=== PATIENT | male | born 1985 | race Caucasian/White ===

== ENCOUNTER 2021-04-25 14:25 | Emergency (ER) | payer MEDICAID, SELFPAY ==
[2021-04-25 14:43] VITALS: BP 112/76; PULSE 75; RESP 14; TEMP 36.8; O2SAT 99; BMI 27.2
--- NOTE | 2021-04-25 15:12 | HMH.EDUTC ---
[facility] [place] Clinical Impression: Vasculitis Disposition: Home, Self-Care Condition on Discharge: Good Instructions: DI for Vasculitis Additional Instructions: Go home and rest. It would be best if you rested tomorrow too. Take the oral medications as directed. Follow up with your regular doctor. GO TO THE ER FOR ANY WORSENING SYMPTOMS OR CONCERN, ESPECIALLY BOWEL OR BLADDER ISSUES, SADDLE AREA NUMBNESS, FEVER, ETC Prescriptions: methylPREDNISolone [Medrol] 4 mg PO DIRECTED 6 Days #21 [email or web address] Transmission Status: Received by [facility] Referrals: Provider,Referral, [Primary Care Provider] - Forms: Work/School Release Time of Disposition: 15:32 Medical Decision Making - Medical Records Medical records reviewed: No: I reviewed the patient's medical records. - Christian Inquiry Pt receiving controlled substance: No Vital Signs: 04/25/21 14:43 04/25/21 15:33 Temperature 98.2 F 98 F Temperature Source Oral Pulse Rate 75 Pulse Rate [Left] 75 Respiratory Rate 14 14 Blood Pressure 112/76 Blood Pressure [Right Arm] 112/76 Blood Pressure Mean [Right Arm] 88 02 Sat by Pulse Oximetry 99 [facility] [place] - General Stated complaint: rash on both legs Time Seen by Provider: 04/25/21 15:12 Mode of Arrival: Ambulatory Source of Information: Patient Limitations: No Limitations HEENT Symptoms (Recalled from RN notes): No Resp Symptoms (Recalled from RN notes): No Skin Symptoms (Recalled from RN notes): Yes (rash bilaterally on lower legs) MS Symptoms (Recalled from RN notes): No Functional Status (Recalled from RN notes): na - History of Present Illness Provider Complaint: pt c/o a rash bilaterally on his legs that is painful and appears blister like. - Related Data Previous Rx's Medication Instructions Recorded methylPREDNISolone [Medrol] 4 mg PO DIRECTED 6 Days #21 04/25/21 [email or web address] Allergies Allergy/AdvReac Type Severity Reaction Status Date / Time No Known Allergies Allergy Verified 04/25/21 15:33 - Worker's Comp Is this a Worker's Comp case?: No [facility] History - Hepatitis A Screen Drug use history?: No High risk sexual behaviors?: No History of sexually transmitted infection?: No Currently employed?: No Childcare worker?: No Do you have indoor plumbing?: Yes Do you have electricity?: Yes Attestation statement:: This patient has been screened for Hepatitis A risk factors. I have reviewed the patient's past medical history: Yes ROS Obtained: Yes All systems reviewed & no additional complaints - Constitutional Constitutional: Denies chills, Denies fever(s) - Respiratory Respiratory: Denies dyspnea, Denies stridor, Denies wheezing - Musculoskeletal Musculoskeletal: Denies back pain - Integumentary/Breasts Skin/Breast: Reports as per HPI Physical Exam - General General appearance: alert, in no apparent distress - Head Head exam: atraumatic, normocephalic, normal inspection - Eye Eye exam: Present: normal appearance, PERRL, EOMI - ENT ENT exam: Present: normal exam, normal oropharynx, mucous membranes moist, TM's normal bilaterally, normal external ear exam - Neck Neck exam: Present: normal inspection, full ROM, trachea midline. Absent: meningismus, lymphadenopathy - Chest Chest inspection: Present: normal inspection, symmetric chest wall rise. Absent: tenderness - Respiratory Respiratory exam: Present: normal lung sounds bilaterally. Absent: respiratory distress - Cardiovascular Cardiovascular exam: Present: regular rate, normal rhythm. Absent: JVD - Abdominal Exam Abdominal exam: Present: soft, normal bowel sounds. Absent: distention, tenderness, guarding - Extremities Exam Extremities exam: Present: normal inspection, full ROM, normal capillary refill. Absent: calf tenderness - Back Exam Back exam: Present: normal inspection. Absent: tenderness - Neurological Exam Neurological exam: Present
[2021-04-25 15:33] VITALS: BP 112/76; PULSE 75; RESP 14; TEMP 36.6
== END 2021-04-25 15:41 | disposition home or self-care (01) ==
PROVIDERS: Emergency Provider Nurse Practitioner Family
DX: I77.6 Arteritis, unspecified (principal)

== ENCOUNTER 2023-02-22 08:04 | Emergency (ER) | payer MEDICAID, SELFPAY ==
[2023-02-22 08:04] VITALS: BP 157/94; PULSE 111; RESP 17; TEMP 36.8; O2SAT 100; BMI 32.8
[2023-02-22 08:06] VITALS: BP 157/94; PULSE 105; RESP 18; O2SAT 98
--- NOTE | 2023-02-22 08:09 | PC.NURSE ---
called Md to speak to someone in facial due to dog bite on pt. ed Md speaking with Dr Self
[2023-02-22 08:11] VITALS: BMI 32.8
--- NOTE | 2023-02-22 08:14 | PC.NURSE ---
pt accepted to [facility] ED by Dr. Self
--- NOTE | 2023-02-22 08:17 | PC.NURSE ---
stated he does not want to give antibiotic at this time and they can give it at the accepting facility in order to not delay pt transfer.
--- NOTE | 2023-02-22 08:21 | PC.NURSE ---
report called to BRAYDEN Vidal at [facility]
--- NOTE | 2023-02-22 08:26 | PC.NURSE ---
pt called out stating pain was about a 7/10
[2023-02-22 08:31] VITALS: BP 154/97; PULSE 100; O2SAT 98
--- NOTE | 2023-02-22 08:38 | HMH.EDGENADL ---
Discharge Plan Disposition Patient Disposition: Xfer [facility] Prescriptions Prescriptions: No Action methylprednisolone 4 MG tablets,dose pack 4 mg PO DIRECTED 6 Days Qty: 21 0RF Referrals Follow up/Referrals: Provider,Referral, MD [Primary Care Provider] - See instructions Clinical Impressions Clinical Impression: Dog bite of face Instructions Patient Instructions: Animal Bites Discharge ED Provider: Levy Ibarra General Adult HPI General Chief complaint: Animal Bite Stated complaint: dog bite Time Seen by Provider: 02/22/23 08:05 Mode of Arrival: Ambulatory Source of Information: Patient Limitations: No Limitations Description of Symptoms (Recalled from ER Triage Doc. by RN): pt to the ED with a large traumatic laceration to the right side of his mouth and puncture wounds to the left side of his face. pt reports his two dogs were fighting and he got in between them when his kyr[place]z saunders latched onto his face. History of Present Illness HPI narrative: Patient is a 37-year-old male with no pertinent past medical history who presents with a dog bite. He says that there was 2 dogs that were fighting when a Serbian Diaz subsequently latched onto his face and he sustained lacerations to the right and left side of his face. Bleeding was controlled at the scene. Unknown last tetanus. He locates the majority of his injuries to the right side of his face but also says there is some on the left side of his face. He says that he can put his tongue through the side of his face. No loss consciousness. Related Data Previous Rx's Medication Instructions Recorded methylprednisolone 4 mg tablets in 4 mg PO DIRECTED 6 days ##21 04/25/21 a dose pack Allergies Allergy/AdvReac Type Severity Reaction Status Date / Time No Known Allergies Allergy Verified 04/25/21 15:33 [facility] Disclaimer: The information contained in this section may have been updated after the patient was seen, as this information can be updated by other users. Social History Smoking Status: Never smoker alcohol intake: never current occupational status: unemployed Travel in the last 8 weeks: None ROS Obtained: Yes All systems reviewed & no additional complaints except as documented Physical Exam General General appearance: alert and in no apparent distress Head Head exam: normocephalic, normal inspection and other (Multiple lacerations to the right and left side of the face, right side of the face has a 8 to 10 cm semicircular laceration that appears to involve the parotid duct, through and through injury, multiple more superficial lacerations to the left cheek) Eye Eye exam: Present normal appearance and PERRL ENT ENT exam: Present normal exam, mucous membranes moist and normal external ear exam Neck Neck exam: Present normal inspection and trachea midline Chest Chest inspection: Present normal inspection and symmetric chest wall rise Respiratory Respiratory exam: Present normal lung sounds bilaterally; Absent respiratory distress Cardiovascular Cardiovascular exam: Present regular rate and normal rhythm Abdominal Exam Abdominal exam: Present soft; Absent distention, tenderness or guarding Extremities Exam Extremities exam: Present normal inspection; Absent edema Neurological Exam Neurological exam: Present alert and oriented X3 Psychiatric Psychiatric exam: Present normal affect and normal mood Skin Skin exam: Present warm, dry, intact and normal color Medical Decision Making Medical Records Medical records reviewed: Yes I reviewed the patient's medical records. Christian Inquiry Pt receiving controlled substance: Yes Christian was queried for this patient: No Risks and benefits of using a controlled substance: were discussed with pt by me Vital Signs: 02/22/23 08:04 02/22/23 08:06 Temperature 98.3 F Temperature Source Oral Pulse Rate 105 H Pulse Rate [Left Radial] 111 H Respiratory Rate
[2023-02-22 09:00] VITALS: BP 138/73; PULSE 103; O2SAT 96
--- NOTE | 2023-02-22 09:11 | PC.NURSE ---
rounded on pt gave hime 4x4 gazes soaking sterile saline water for pt to keep over wound requested by nurse taking care of pt, updated him on being sent to [facility].. no complaints at this time, at bs
[2023-02-22 09:20] VITALS: BP 134/71; PULSE 87; RESP 17; TEMP 36.8; O2SAT 96
== END 2023-02-22 09:23 ==
PROVIDERS: Emergency Provider Student in an Organized Health Care Education/Training Program
DX: S01.81XA Laceration without foreign body of other part of head, initial encounter (principal); S01.432A Puncture wound without foreign body of left cheek and temporomandibular area, initial encounter; W54.0XXA Bitten by dog, initial encounter; Z23 Encounter for immunization
CPT/HCPCS: 90471; 90715; 96372; 96374; 96375; 96376; 99285; J2405